=== PATIENT | female | born 1950 | race Two or more races ===

== ENCOUNTER 2017-08-19 05:55 | Day surgery (SDC) | payer OTHER ==
[~2017-08-19 05:55] MED LIST: ALDACTONE50 MG PO; CALTRATE 600 +1 EACH; CALTRATE 600+D1 EAC1 PO; CENTRUM ADULTS1 EACH PO; ENALAPRIL MALEA10 MG; GLUCOPHAGE XR500 MG PO; GLUCOVANCE 2.5/1 TAB; INDERAL PO; LASIX20 MG PO; NEURONTIN800 MG; PLETAL PO; RESTORIL30 M1 PO
== END 2017-08-19 09:25 | disposition home or self-care (01) ==
LOC: AMB-ENDOS 05:55
DX: D12.0 Benign neoplasm of cecum (principal); D12.2 Benign neoplasm of ascending colon; K57.30 Diverticulosis of large intestine without perforation or abscess without bleeding; K64.8 Other hemorrhoids

== ENCOUNTER 2022-09-10 05:58 | Day surgery (SDC) | payer OTHER | END 2022-09-10 13:50 | disposition home or self-care (01) | LOC: AMB-ENDOS 05:58 | PROVIDERS: ATTEND Colon & Rectal Surgery | DX: D12.4 Benign neoplasm of descending colon (principal); D12.2 Benign neoplasm of ascending colon; D12.1 Benign neoplasm of appendix; K62.5 Hemorrhage of anus and rectum; R19.4 Change in bowel habit; Z20.822 Contact with and (suspected) exposure to COVID-19 ==